=== PATIENT | female | born 1945 | race Caucasian/White ===

== ENCOUNTER → 2016-08-13 | Outpatient (CLI) | payer OTHER, MEDICAID | LOC: BMCIMAGING 13:24 | PROVIDERS: ATTEND Family Medicine | DX: S22.41XA Multiple fractures of ribs, right side, initial encounter for closed fracture (principal); R91.8 Other nonspecific abnormal finding of lung field | CPT/HCPCS: 71101-PO ==

== ENCOUNTER → 2016-09-11 | Outpatient (CLI) | payer OTHER, MEDICAID | LOC: FIMAGING 13:56 | PROVIDERS: ATTEND Family Medicine | DX: R91.1 Solitary pulmonary nodule (principal); F17.210 Nicotine dependence, cigarettes, uncomplicated; K76.9 Liver disease, unspecified; E27.8 Other specified disorders of adrenal gland ==

== ENCOUNTER → 2018-05-03 | Outpatient (CLI) | payer OTHER, MEDICAID | LOC: BMCIMAGING 09:23 | PROVIDERS: ATTEND Family Medicine | DX: Z13.828 Encounter for screening for other musculoskeletal disorder (principal); R22.41 Localized swelling, mass and lump, right lower limb ==